=== PATIENT | male | born 1980 | race Two or more races ===

== ENCOUNTER 2018-04-20 14:07 | Emergency (ER) | payer MEDICAID ==
[~2018-04-20] VITALS: Ht 172.7 cm; Wt 113.4 kg
[2018-04-20] MEDS ORDERED: OLANZAPINE 10 MG VIAL IM ONE ×4 (14:15→19:45)
[2018-04-20] MEDS ORDERED: LORAZEPAM 2 MG/1 ML VIAL IM ONE ×2 (14:15→17:45)
--- NOTE | 2018-04-20 14:15 | NUR ---
Pt. GAUTAM 84 on restraints for alcohol intoxication, yelling, screaming, kicking, not following directions, placed in room 3A and placed in restraints for pt. and staff safety,
[2018-04-20] MEDS ORDERED: LORAZEPAM 2 MG/1 ML VIAL ONE ×2 (14:17→18:10)
--- NOTE | 2018-04-20 14:25 | NUR ---
Pt. given chemical restraint, labs unable to be drawn due to pt. refusal and combativeness,
[2018-04-20] MEDS ORDERED: HALOPERIDOL LACTATE 5 MG/1 ML VIAL ONE ×2 (14:36→17:45)
[2018-04-20] MEDS ORDERED: HALOPERIDOL LACTATE 5 MG/1 ML VIAL IM ONE ×2 (14:45→17:45)
[2018-04-20 14:57] LABS: BASOPHILS # (AUTO) 0.1 K/uL (0.0-8.0); BASOPHILS % (AUTO) 0.9 % (0.0-2.0); EOSINOPHILS % (AUTO) 0.4 % (0.0-7.0); HEMATOCRIT 40.7 % (36.7-47.1); HEMOGLOBIN 13.9 g/dL (12.5-16.3); LYMPHOCYTES # (AUTO) 1.9 K/uL (20.0-40.0); LYMPHOCYTES % (AUTO) 21.9 % (20.5-51.5); MEAN CORPUSCULAR HGB CONC 34 g/dL (32.5-36.3); MEAN CORPUSCULAR VOLUME 93.7 fL (73.0-96.2); MONOCYTES # (AUTO) 0.6 K/uL (2.0-10.0); MONOCYTES % (AUTO) 6.9 % (0.0-11.0); NEUTROPHILS % (AUTO) 69.9 % (38.5-71.5); PLATELET COUNT (AUTO) 240 K/uL (152-348); RED BLOOD CELL COUNT(AUTO) 4.34 MIL/uL (4.06-5.63); WHITE BLOOD COUNT (AUTO) 8.5 K/uL (3.6-10.2)
[2018-04-20 15:03] LABS: CARBON DIOXIDE 25 mmol/L (21-32); CHLORIDE 114 mmol/L (98-107); CREATININE 0.4 mg/dL (0.6-1.3); GLUCOSE 114 mg/dL (74-106); POTASSIUM 3.9 mmol/L (3.5-5.1); UREA NITROGEN, BLOOD 5 mg/dL (7-18)
[2018-04-20 15:09] LABS: ALANINE AMINOTRANSFERASE 15 U/L (16-63); ALKALINE PHOSPHATASE 107 U/L (50-136); ASPARTATE AMINOTRANSFERASE 19 U/L (15-37); BILIRUBIN,DIRECT 0.1 mg/dL (0.0-0.2); BILIRUBIN,TOTAL 0.3 mg/dL (0.2-1.0); TOTAL PROTEIN, SERUM 6.9 g/dL (6.4-8.2)
[2018-04-20 15:11] LABS: ETHANOL 261 MG/DL (0-0)
[2018-04-20 15:12] LABS: ACETAMINOPHEN < 2.0 ug/mL (10-30)
--- NOTE | 2018-04-20 16:00 | NUR ---
Patient is resting comfortably in bed with eyes closed
--- NOTE | 2018-04-20 17:00 | NUR ---
Patient is resting comfortably in bed with eyes closed
--- NOTE | 2018-04-20 17:45 | NUR ---
Patient observed out of bed, attempting to urinate on the floor. Patient was assisted by staff members but became slightly beligerent and would not return to the bed. Due to his unsteady gait, and his non-compliance, brenda TYLER was called for safety. Patient was returned to bed but immediately became compliant, following commands, and requesting to sleep. Patient was not returned to his restraints as ordered at this time due to his cooperation. DIRK notified.
--- NOTE | 2018-04-20 17:48 | NUR ---
[facility] in EDM - 04/20/18 at 1805 by MARTA Pt. out of bed to pee, became agitated, demanding, verbally threatening and combative, put back in bed,
[2018-04-20 18:00] LABS: *BILIRUBIN,URIN NEGATIVE (NEGATIVE); *BLOOD, URINE NEGATIVE (NEGATIVE); *CLARITY,URINE CLEAR (CLEAR); *COLOR,URINE LIGHT YELLOW (YELLOW); *KETONES,URINE NEGATIVE (NEGATIVE); *PROTEIN,URINE NEGATIVE (NEGATIVE); *UROBILINOGEN,URINE 0.2 E.U./dl (NORMAL); LEUKOCYTE ESTERASE ,URINE NEGATIVE (NEGATIVE); NITRITE, URINE NEGATIVE (NEGATIVE); PH,URINE 6.5 (5.0-8.0); UGLUCOSE NEGATIVE (NEGATIVE)
--- NOTE | 2018-04-20 18:05 | NUR ---
Patient requesting food, while obtaining a snack patient exited the bed and had an observed fall (via another staff member) wherein he fell "slowly." ERMD notified, orders recieved. Patient returned to 4-point restraints as ordered by DIRK. Chemical restraint given.
[2018-04-20 18:07] LABS: *AMPHETAMINE, URINE NEGATIVE (NEGATIVE); *BARBITURATE, URINE NEGATIVE (NEGATIVE); *CANNABINOID, URINE POSITIVE (NEGATIVE); *COCCAINE, URINE NEGATIVE (NEGATIVE); *OPIATE, URINE NEGATIVE (NEGATIVE); *PHENCYCLIDINE SCREEN,URINE NEGATIVE (NEGATIVE)
[2018-04-20 18:09] LABS: WBC,URINE 0-3 /HPF (0-3)
[2018-04-20 18:10] LABS: MUCUS,URINE FEW /LPF (0-FEW)
[2018-04-20] MEDS ORDERED: MIDAZOLAM HCL 2 MG/2 ML VIAL IV ONE ×2 (18:30→20:15)
[2018-04-20] MEDS ORDERED: MIDAZOLAM HCL 2 MG/2 ML VIAL ONE ×3 (18:54→20:59)
--- NOTE | 2018-04-20 19:00 | NUR ---
Assumed care of pt at this time. Pt is currently in bed in 4 point restraints. Pt is yelling, screaming, being uncooperative. Still pending CT scan till patient is calm & cooperative.
--- NOTE | 2018-04-20 20:20 | NUR ---
Patient yelling,screaming uncooperative. Attempting to get out of bed. Dr Hernandez aware
[2018-04-20] MEDS ORDERED: MIDAZOLAM HCL 2 MG/2 ML VIAL IM ONE (21:00)
--- NOTE | 2018-04-20 21:22 | NUR ---
Pt went down to CT scan. Cooperative at this time.
--- NOTE | 2018-04-20 21:38 | NUR ---
Pt back from CT scan. No acute distress noted. Pt resting in bed with eyes closed.
--- NOTE | 2018-04-20 22:51 | NUR ---
Pt resting comfortably in bed with eyes closed. No acute distress noted.
--- NOTE | 2018-04-21 00:14 | NUR ---
Pt resting comfortably in bed with eyes closed. VSS.
--- NOTE | 2018-04-21 01:52 | NUR ---
Pt still sleeping in bed. VSS. No acute distress noted.
--- NOTE | 2018-04-21 03:38 | NUR ---
Pt still sleeping in bed. SUZANNA prater.
--- NOTE | 2018-04-21 05:21 | NUR ---
Pt still sleeping in bed. NAD noted.
--- NOTE | 2018-04-21 06:13 | NUR ---
Patient discharged to home in stable conditon. Written and verbal after care instructions given. Patient verbalizes understanding of instructions. Pt ambulated out of ER in steady gait. AAOX3. Calm + Cooperative. All belongings with pt. VSS. NAd noted.
[2018-04-21 06:17] VITALS: BP 125/69
== END 2018-04-21 06:18 | disposition home or self-care (01) ==
LOC: ER 14:07
DX: F10.129 Alcohol abuse with intoxication, unspecified (principal)
CPT/HCPCS: 36415; 70450; 80048; 80076; 80307; 81001; 85025; 96372 ×5; 99285; G0480 ×2; G0481; J1630 ×2; J2060 ×2; J2250 ×3; A4663; J2358

== ENCOUNTER 2018-04-21 16:27 | Emergency (ER) | payer MEDICAID ==
[~2018-04-21] VITALS: Ht 172.7 cm; Wt 113.4 kg
--- NOTE | 2018-04-21 19:00 | NUR ---
Received report from Cornel [facility].
--- NOTE | 2018-04-21 19:18 | NUR ---
Pt sleeping in bed, no acute signs of distress.
--- NOTE | 2018-04-21 20:32 | NUR ---
Pt sleeping in bed, no acute signs of distress.
--- NOTE | 2018-04-21 21:36 | NUR ---
Pt sleeping in bed, no acute signs of distress.
--- NOTE | 2018-04-21 22:46 | NUR ---
Pt sleeping in bed, no acute signs of distress.
--- NOTE | 2018-04-21 23:48 | NUR ---
Pt sleeping in bed, no acute signs of distress.
--- NOTE | 2018-04-22 00:37 | NUR ---
Patient remains in bed at this time. patient responds to verbal and tactile sitmuli. Patient is unable to ambulate with stable gait at this time, continue to monitor in ER due to +ETOH.
--- NOTE | 2018-04-22 01:59 | NUR ---
Pt sleeping in bed, no acute signs of distress.
--- NOTE | 2018-04-22 02:43 | NUR ---
Pt sleeping in bed, no acute signs of distress.
--- NOTE | 2018-04-22 03:30 | NUR ---
Pt sleeping, no acute signs of distress.
--- NOTE | 2018-04-22 04:44 | NUR ---
Pt sleeping in bed, snoring, no acute signs of distress.
--- NOTE | 2018-04-22 05:22 | NUR ---
Patient discharged to home in stable conditon. Written and verbal after care instructions given. Patient verbalizes understanding of instructions. Pt out of ER with steady gait, no acute signs of distress, VSS, all belongings taken.
[2018-04-22 05:23] VITALS: BP 118/76
== END 2018-04-22 05:24 | disposition home or self-care (01) ==
LOC: ER 16:29
DX: F10.129 Alcohol abuse with intoxication, unspecified (principal); F10.10 Alcohol abuse, uncomplicated
CPT/HCPCS: A4663